=== PATIENT | female | born 1990 | race Hispanic/Latino ===

== ENCOUNTER 2017-09-11 12:54 | Emergency (ER) | payer MEDICAID ==
[2017-09-11 13:19] LABS: #Eosinphils 0.3 thou/uL (0.0-0.7); #Lymphocytes 1.3 thou/uL (1.20-3.40); #Monocytes 0.3 thou/uL (0.11-0.59); #Neutrophils 4.6 thou/uL (1.40-6.50); %Basophils 0.6 % (0.0-1.0); %Eosinophils 4.4 % (0.0-10.0); %Lymphocytes 19.1 % (21.0-51.0); %Monocytes 4.9 % (0.0-10.0); %Neutrophils 70.9 % (42.0-75.0); Hemoglobin 12.7 g/dL (12.0-16.0); Mean Corpuscular HGB CONC 35.8 g/dL (32.0-36.0); Mean Corpuscular Hemoglobin 31.5 pg (27.0-31.0); Mean Corpuscular Volume 87.9 fl (81.0-99.0); Mean Platelet Volume 7.3 fL (7.4-10.4); Platelet Count 264 thou/uL (130-400); RBC Distribution Width 12.4 % (11.5-14.5); Red Blood Cell (RBC) Count 4.04 mill/uL (4.20-5.40); White Blood Cell (WBC) Count 6.5 thou/uL (4.8-10.8)
[2017-09-11 13:53] LABS: ALT (SGPT) 14 U/L (8-55); AST (SGOT) 29 U/L (5-34); Albumin 3.7 g/dL (3.5-5.0); Alkaline Phosphatase 47 U/L (40-150); Anion Gap 11 mmol/L (10-20); BUN (Urea Nitrogen) 7 mg/dL (7.0-18.7); Bilirubin, Total 0.4 mg/dL (0.2-1.2); Calc. Creatinine Clearance 0 mL/min (70-130); Calcium 8.9 mg/dL (7.8-10.44); Carbon Dioxide 23 mmol/L (22-29); Chloride 108 mmol/L (98-107); Estimated GFR-MDRD Greater than 90; Globulin 2.6 g/dL (2.4-3.5); Glucose 154 mg/dL (70-105); Potassium 3.6 mmol/L (3.5-5.1); Protein, Total 6.3 g/dL (6.0-8.3); Sodium 138 mmol/L (136-145)
--- NOTE | 2017-09-11 15:04 | ULT ---
PELVIC ULTRASOUND INCLUDING TRANSABDOMINAL AND TRANSVAGINAL AND VASCULAR DUPLEX WITH COLOR AND SPECTR AL DOPPLER IMAGING: Date: 09/11/17 HISTORY: History of positive outpatient with vaginal bleeding. Serum HCG was 2.98. FINDINGS: The uterus measures 8.7 x 4.0 x 5.8 cm. Endometrium is 0.5 cm. The right ovary measures 2.2 x 3.0 x 1 .6 cm. The left ovary is not seen. Some cystic changes in the cervix, probably complicated nabothian cysts. No significant abnormal cul-de-sac fluid. IMPRESSION: No evidence for an intrauterine gestational sac. Nonvisualized left ovary. Follow-up serum HCGs are recommended. If diagnosis remains in doubt, or if there is elevating HCGs, f ollow-up short-term ultrasound is suggested. POS: [facility]
== END 2017-09-11 16:10 | disposition home or self-care (01) ==
LOC: ERS 12:54
DX: O20.0 Threatened abortion (principal); O99.341 Other mental disorders complicating pregnancy, first trimester; F41.9 Anxiety disorder, unspecified; F32.9 Major depressive disorder, single episode, unspecified; Z3A.01 Less than 8 weeks gestation of pregnancy
CPT/HCPCS: 36415; 76856; 80053; 84702; 85025; 86850; 86900; 86901

== ENCOUNTER 2017-10-07 13:00 | Emergency (ER) | payer MEDICAID, OTHER ==
[2017-10-07 14:07] LABS: Bilirubin Negative (Negative); Blood, Urine Negative (Negative); Clarity CLEAR (Clear); Glucose, Urine (Dipstick) Negative (Negative); Leukocyte Negative (Negative); Nitrite Negative (Negative); Protein, Urine (Dipstick) Negative (Neg-Trace); Specific Gravity, Urine 1.019 (1.002-1.036); Urobilinogen 0.2 mg/dL (0.2-1.0); pH, Urine 7.5 (5.0-9.0)
[2017-10-07 14:13] LABS: Pregnancy Test - Urine (BHCG) Negative (Negative); Pregu Control Background? CLEAR/WHITE (CLR/WHITE); Pregu Control Bar Appear? YES (CONTROL BAR); Specific Gravity 1.019 (1.002-1.036)
[2017-10-07 14:33] LABS: BHCG - Serum POSITIVE (NEGATIVE); Pregs Control Background? CLEAR/WHITE (CLR/WHITE); Pregs Control Bar Appear? YES (CONTROL BAR)
[2017-10-07] MEDS ORDERED: Acetaminophen 500 MG TAB ONE (15:56)
--- NOTE | 2017-10-07 16:11 | ULT ---
FIRST TRIMESTER GESTATIONAL ULTRASOUND 10/07/17 HISTORY: History of recent miscarriage with persistent vaginal bleeding and positive beta HCG. COMPARISON: Prior exam dated 09/11/17. TECHNIQUE: A transabdominal and transvaginal pelvic ultrasound utilizing mehta scale, color doppler and spectral doppler images were performed. FINDINGS: The uterus measures 8.2 x 4.7 x 5.5 cm. There is fluid present within the endometrial canal. No defin ite vascularized tissue is grossly evidence within the endometrial canal. The right ovary measures 3.2 x 2.1 x 2.4 cm. There is flow to the right ovary. The left ovary is not visualized. No definite free fluid is evident. IMPRESSION: 1. Nonvisualization of the previously seen cystic structure at the level of the lower uterine se gment on the comparison examination. There is now fluid present lining the endometrial canal without evidence of a dopplerable soft tissue to suggest retained products of conception. 2. The visualized right ovary is normal appearing. The left ovary is not well seen. POS: [facility]
== END 2017-10-07 16:24 | disposition home or self-care (01) ==
LOC: ERS 13:00
DX: O20.0 Threatened abortion (principal); O99.89 Other specified diseases and conditions complicating pregnancy, childbirth and the puerperium; M54.5 Low back pain; O99.341 Other mental disorders complicating pregnancy, first trimester; F41.9 Anxiety disorder, unspecified; F32.9 Major depressive disorder, single episode, unspecified
CPT/HCPCS: 36415; 76856; 81003; 81025; 84702; 84703; 87086

== ENCOUNTER 2017-10-18 20:29 | Emergency (ER) | payer OTHER ==
[2017-10-18 21:21] LABS: #Basophils 0.1 thou/uL (0.0-0.2); #Eosinphils 0.1 thou/uL (0.0-0.7); #Lymphocytes 2.5 thou/uL (1.20-3.40); #Monocytes 0.5 thou/uL (0.11-0.59); #Neutrophils 3.2 thou/uL (1.40-6.50); %Eosinophils 1.5 % (0.0-10.0); %Monocytes 8.3 % (0.0-10.0); %Neutrophils 50.1 % (42.0-75.0); Hemoglobin 12.5 g/dL (12.0-16.0); Mean Corpuscular HGB CONC 35.1 g/dL (32.0-36.0); Mean Corpuscular Hemoglobin 30.6 pg (27.0-31.0); Mean Corpuscular Volume 87.2 fl (81.0-99.0); Mean Platelet Volume 6.3 fL (7.4-10.4); Platelet Count 311 thou/uL (130-400); RBC Distribution Width 12.4 % (11.5-14.5); Red Blood Cell (RBC) Count 4.09 mill/uL (4.20-5.40); White Blood Cell (WBC) Count 6.3 thou/uL (4.8-10.8)
[2017-10-18 21:22] LABS: BHCG - Serum POSITIVE (NEGATIVE); Pregs Control Background? CLEAR/WHITE (CLR/WHITE); Pregs Control Bar Appear? YES (CONTROL BAR)
--- NOTE | 2017-10-18 23:07 | ULT ---
TRANSABDOMINAL AND TRANSVAGINAL PELVIC ULTRASOUND WITH DOPPLER: 10/18/2017 PROVIDED CLINICAL HISTORY: Vaginal bleeding. COMPARISON: 10/07/2017 FINDINGS: The uterus measures approximately 9.7 x 5.4 x 3.2 cm and demonstrates material of somewhat amorphous shape and mixed echogenicity within the endometrial canal. This material measures approximately 2.8 x 6.2 cm. No flow is documented to this material. There is surrounding fluid echogenicity within th e endometrial canal. The right and left ovaries demonstrate an unremarkable sonographic appearance. There is a small amount of free fluid present in the pelvic cul-de-sac. Color Doppler and spectral analysis of the ovarian wave-forms demonstrates flow bilaterally. IMPRESSION: Heterogeneous material within the uterine endometrial canal, as described above, possibly reflecting blood products or products of conception. No evidence for a viable intrauterine . POS: [facility]
[2017-10-18 23:45] LABS: Bilirubin Small (Negative); Blood, Urine Large (Negative); Clarity CLOUDY (Clear); Glucose, Urine (Dipstick) Negative (Negative); Leukocyte Trace (Negative); Nitrite Negative (Negative); Protein, Urine (Dipstick) 30 mg/dL (Neg-Trace); Specific Gravity, Urine 1.028 (1.002-1.036)
[2017-10-18 23:47] LABS: Bacteria/HPF None Seen HPF (None Seen); Hyaline Casts/LPF 0-3 HYALINE CAST LPF (0-3 Hyaline); Pathc Cast-AUWi Flag 0.72 (0-2.49); RBC/HPF GREATER THAN 50-TNTC HPF (0-3); WBC/HPF 0-3 HPF (0-3)
[2017-10-20 01:36] LABS: Chlamydia by PCR Not Detected (NotDetected); GC by PCR Not Detected (NotDetected)
== END 2017-10-18 23:35 | disposition home or self-care (01) ==
LOC: ERS 20:29
DX: O20.0 Threatened abortion (principal); O99.511 Diseases of the respiratory system complicating pregnancy, first trimester; J45.909 Unspecified asthma, uncomplicated; O99.341 Other mental disorders complicating pregnancy, first trimester; F41.9 Anxiety disorder, unspecified; F32.9 Major depressive disorder, single episode, unspecified; Z3A.01 Less than 8 weeks gestation of pregnancy
CPT/HCPCS: 36415; 76856; 81003; 81015; 84702; 84703; 85025; 86850; 86900; 86901; 87480; 87491; 87510; 87591; 87660

== ENCOUNTER 2017-10-21 13:02 | Emergency (ER) | payer OTHER ==
[2017-10-21] MEDS ORDERED: Acetaminophen 500 MG TAB ONE (13:46)
--- NOTE | 2017-10-21 14:14 | ULT ---
PELVIC ULTRASOUND: COMPARISON: 10/18/17, 10/07/17. HISTORY: Status post miscarriage 1 week. Bleeding has decreased. Vaginal cramping and bleeding. TECHNIQUE: Transabdominal imaging of the pelvis is performed. Ovaries are interrogated with mehta scale, color f low, Doppler imaging, and spectral waveform analysis. Endovaginal imaging was also performed. FINDINGS: Uterus is identified. There are no myometrial masses. Uterus measures 6.9 x 4.9 x 9.5 cm. Thickene d slightly heterogeneous endometrium with a diameter of 2.6 cm. Previously noted mixed echotexture f ocus in the endometrium is presumed to be a component of the findings that are currently in the endom etrium. No evidence of a gestational sac, yolk sac, or pole. No evidence of vascularity in th e endometrium. Minimal free fluid in the cul-de-sac. Left and right ovary have a normal echotexture measuring 3.3 x 2.2 x 1.9 cm and 3.0 x 2.9 x 2.1 cm. Vascular flow to both ovaries. IMPRESSION: Persistently thickened and slightly heterogeneous endometrium without vascular flow. No evidence of an intrauterine gestation. Findings may represent blood products vs retained products of conception. Confirmation with serum beta HGC is recommended. POS: [facility]
--- NOTE | 2017-10-21 14:36 | PDOC.EVN ---
Event Note - Event Note Event Note: YULIANA Informal Phone Consult from ED (@[id number]): Clinical case: OB first trimester vag bleed Case reviewed with ED provider HPI: This patient is a multigravida, without ectopic risk factors, here for OB Vag Bleed. BHCG 3 days ago was 1900 with BHCG today as 4060. Sono today with thickened ES, no GS, no adnexal masses. Normal doppler studies to adnexa. The patient has some small vag bleed but no active clotting or hemorrhage. Per ED provider, no complaints of abdominal pains. Physical report is benign. Vitals are wnl. RH positive Based on my verbal discussion of the case, it is compatible with an ill fated IUP (abnormal ). At this time, I do not suspect an ectopic. Rather than emperic methotrxate, I have recommended a scheduled D&C with her [facility] provider as that will allow for tissue diagnosis of uterine contents, as well as therapy As she is stable without active vag bleed, she is stable and does not met criteria for urgent/emergent D&C at this time. Plan D/W ED staff. All agree with plan of care..
== END 2017-10-21 15:03 | disposition home or self-care (01) ==
LOC: ERS 13:02
DX: O20.0 Threatened abortion (principal); O99.511 Diseases of the respiratory system complicating pregnancy, first trimester; J45.909 Unspecified asthma, uncomplicated; O99.341 Other mental disorders complicating pregnancy, first trimester; F41.9 Anxiety disorder, unspecified; F32.9 Major depressive disorder, single episode, unspecified; Z3A.01 Less than 8 weeks gestation of pregnancy
CPT/HCPCS: 36415; 76856; 84702

== ENCOUNTER 2018-03-08 06:27 | Emergency (ER) | payer OTHER ==
[2018-03-08] MEDS ORDERED: Ketorolac Tromethamine 30 MG/ML VIAL ONE (06:43)
[2018-03-08] MEDS ORDERED: Ondansetron HCl/PF 4 MG/2 ML Vial ONE (06:43)
[2018-03-08 07:07] LABS: Bilirubin Negative (Negative); Blood, Urine Negative (Negative); Clarity CLEAR (Clear); Glucose, Urine (Dipstick) Negative (Negative); Leukocyte Negative (Negative); Nitrite Negative (Negative); Protein, Urine (Dipstick) Negative (Neg-Trace); Specific Gravity, Urine 1.021 (1.002-1.036); Urobilinogen 0.2 mg/dL (0.2-1.0)
[2018-03-08 07:11] LABS: ALT (SGPT) 11 U/L (8-55); AST (SGOT) 17 U/L (5-34); Albumin 4.6 g/dL (3.5-5.0); Alkaline Phosphatase 56 U/L (40-150); Anion Gap 12 mmol/L (10-20); BUN (Urea Nitrogen) 13 mg/dL (7.0-18.7); Bilirubin, Total 0.3 mg/dL (0.2-1.2); Calc. Creatinine Clearance 0 mL/min (70-130); Calcium 9.4 mg/dL (7.8-10.44); Carbon Dioxide 26 mmol/L (22-29); Chloride 106 mmol/L (98-107); Estimated GFR-MDRD 81; Globulin 2.8 g/dL (2.4-3.5); Glucose 103 mg/dL (70-105); Lipase 49 U/L (8-78); Potassium 3.8 mmol/L (3.5-5.1); Protein, Total 7.4 g/dL (6.0-8.3); Sodium 140 mmol/L (136-145)
[2018-03-08 07:21] LABS: Band 1 % (5-11); Eosinophils 6 % (0-10); Hemoglobin 13.7 g/dL (12.0-16.0); Lymphocytes 31 % (21-51); MDiff Complete? YES; Mean Corpuscular HGB CONC 32.8 g/dL (32.0-36.0); Mean Corpuscular Hemoglobin 31.7 pg (27.0-31.0); Mean Corpuscular Volume 96.5 fL (78.0-98.0); Mean Platelet Volume 7.5 fL (7.4-10.4); Monocytes 5 % (0-10); Neutrophil 55 % (42-75); PLT Morphology Comment Appears Adequate; Platelet Count 271 thou/uL (130-400); RBC Distribution Width 11.6 % (11.5-14.5); RBC Morphology Normal; Reactive Lymphocytes 1 % (0-10); Red Blood Cell (RBC) Count 4.34 mill/uL (4.20-5.40); White Blood Cell (WBC) Count 5.9 thou/uL (4.8-10.8)
[2018-03-08 08:42] LABS: Pregnancy Test - Urine (BHCG) Negative (Negative); Pregu Control Background? CLEAR/WHITE (CLR/WHITE); Pregu Control Bar Appear? YES (CONTROL BAR); Specific Gravity 1.021 (1.002-1.036)
== END 2018-03-08 11:16 | disposition home or self-care (01) ==
LOC: ERS 06:27
DX: N76.0 Acute vaginitis (principal); J45.909 Unspecified asthma, uncomplicated; R10.9 Unspecified abdominal pain
CPT/HCPCS: 80053; 81003; 81025; 83690; 85025; 87480; 87491; 87510; 87591; 87660; 96361; 96374; 96375; J1885; J2405

== ENCOUNTER 2018-04-21 22:10 | Emergency (ER) | payer OTHER, SELFPAY ==
[2018-04-21] MEDS ORDERED: Lidocaine 1% (PF) 30 ML VIAL ONE (22:25)
[2018-04-21] MEDS ORDERED: Bacitracin Zinc 1 Packet ONE (22:45)
== END 2018-04-21 22:54 | disposition home or self-care (01) ==
LOC: ERS 22:10
DX: S61.211A Laceration without foreign body of left index finger without damage to nail, initial encounter (principal); J45.909 Unspecified asthma, uncomplicated; F41.9 Anxiety disorder, unspecified; F32.9 Major depressive disorder, single episode, unspecified; Z79.899 Other long term (current) drug therapy; W25.XXXA Contact with sharp glass, initial encounter
CPT/HCPCS: 12001; J2001

== ENCOUNTER 2018-12-10 23:35 | Emergency (ER) | payer SELFPAY ==
[2018-12-11] MEDS ORDERED: Ketorolac Tromethamine 60 MG/2 ML VIAL ONE (00:28)
== END 2018-12-11 00:47 | disposition home or self-care (01) ==
LOC: ERS 23:35
DX: K04.7 Periapical abscess without sinus (principal); K02.9 Dental caries, unspecified; F41.9 Anxiety disorder, unspecified; F17.210 Nicotine dependence, cigarettes, uncomplicated
CPT/HCPCS: 96372; 99283; J1885

== ENCOUNTER 2018-12-16 13:29 | Emergency (ER) | payer SELFPAY ==
[2018-12-16 14:33] LABS: #Basophils 0.1 thou/uL (0.0-0.2); #Eosinphils 0.3 thou/uL (0.0-0.7); #Monocytes 0.3 thou/uL (0.11-0.59); #Neutrophils 3.6 thou/uL (1.40-6.50); %Basophils 1.3 % (0.0-1.0); %Eosinophils 4.2 % (0.0-10.0); %Lymphocytes 31.7 % (21.0-51.0); %Monocytes 4.7 % (0.0-10.0); Hemoglobin 12.6 g/dL (12.0-16.0); Mean Corpuscular HGB CONC 32.6 g/dL (32.0-36.0); Mean Corpuscular Hemoglobin 27.9 pg (27.0-31.0); Mean Corpuscular Volume 85.6 fL (78.0-98.0); Mean Platelet Volume 7.6 fL (7.4-10.4); Platelet Count 262 thou/uL (130-400); RBC Distribution Width 13.6 % (11.5-14.5); Red Blood Cell (RBC) Count 4.51 mill/uL (4.20-5.40); White Blood Cell (WBC) Count 6.2 thou/uL (4.8-10.8)
[2018-12-16 14:52] LABS: ALT (SGPT) 64 U/L (8-55); AST (SGOT) 36 U/L (5-34); Alkaline Phosphatase 53 U/L (40-150); Anion Gap 10 mmol/L (10-20); BUN (Urea Nitrogen) 12 mg/dL (7.0-18.7); Bilirubin, Total 0.5 mg/dL (0.2-1.2); Calc. Creatinine Clearance 0 mL/min (70-130); Calcium 9.1 mg/dL (7.8-10.44); Carbon Dioxide 24 mmol/L (22-29); Chloride 106 mmol/L (98-107); Estimated GFR-MDRD Greater than 90; Globulin 2.6 g/dL (2.4-3.5); Glucose 158 mg/dL (70-105); Lipase 55 U/L (8-78); Potassium 4.1 mmol/L (3.5-5.1); Protein, Total 6.6 g/dL (6.0-8.3); Sodium 136 mmol/L (136-145)
== END 2018-12-16 15:32 | disposition home or self-care (01) ==
LOC: ERS 13:29
DX: R10.84 Generalized abdominal pain (principal); J45.909 Unspecified asthma, uncomplicated; F41.9 Anxiety disorder, unspecified; F17.210 Nicotine dependence, cigarettes, uncomplicated; Z79.899 Other long term (current) drug therapy
CPT/HCPCS: 36415; 80053; 83690; 85025; 99284

== ENCOUNTER 2019-05-05 20:22 | Emergency (ER) | payer SELFPAY ==
[2019-05-05 21:04] LABS: #Basophils 0.1 thou/uL (0.0-0.2); #Eosinphils 0.2 thou/uL (0.0-0.7); #Lymphocytes 2.2 thou/uL (1.20-3.40); #Monocytes 0.4 thou/uL (0.11-0.59); #Neutrophils 6.4 thou/uL (1.40-6.50); %Basophils 0.9 % (0.0-1.0); %Lymphocytes 23.4 % (21.0-51.0); %Monocytes 4.6 % (0.0-10.0); %Neutrophils 69.1 % (42.0-75.0); Hemoglobin 13.9 g/dL (12.0-16.0); Mean Corpuscular HGB CONC 34.8 g/dL (32.0-36.0); Mean Corpuscular Volume 86.1 fL (78.0-98.0); Mean Platelet Volume 7.3 fL (7.4-10.4); Platelet Count 266 thou/uL (130-400); RBC Distribution Width 12.4 % (11.5-14.5); Red Blood Cell (RBC) Count 4.64 mill/uL (4.20-5.40); White Blood Cell (WBC) Count 9.3 thou/uL (4.8-10.8)
[2019-05-05 21:23] LABS: ALT (SGPT) 39 U/L (8-55); AST (SGOT) 23 U/L (5-34); Albumin 3.3 g/dL (3.5-5.0); Alkaline Phosphatase 47 U/L (40-110); Anion Gap 8 mmol/L (10-20); BUN (Urea Nitrogen) 12 mg/dL (7.0-18.7); Bilirubin, Total 0.3 mg/dL (0.2-1.2); Calc. Creatinine Clearance 0 mL/min (70-130); Calcium 8.1 mg/dL (7.8-10.44); Carbon Dioxide 28 mmol/L (22-29); Chloride 107 mmol/L (98-107); Estimated GFR-MDRD Greater than 90; Glucose 217 mg/dL (70-105); Lipase 70 U/L (8-78); Potassium 4.1 mmol/L (3.5-5.1); Protein, Total 5.3 g/dL (6.0-8.3); Sodium 139 mmol/L (136-145)
== END 2019-05-05 23:23 | disposition home or self-care (01) ==
LOC: ERS 20:22
DX: R04.2 Hemoptysis (principal); R10.9 Unspecified abdominal pain; J45.909 Unspecified asthma, uncomplicated; F41.9 Anxiety disorder, unspecified; F17.210 Nicotine dependence, cigarettes, uncomplicated
CPT/HCPCS: 36415; 80053; 83690; 85025; 93005

== ENCOUNTER 2019-05-10 18:07 | Emergency (ER) | payer SELFPAY ==
[2019-05-10] MEDS ORDERED: Ketorolac Tromethamine 30 MG/ML VIAL ONE (18:38)
[2019-05-10] MEDS ORDERED: HYDROcodone/Acetaminophen 5/325 mg Tablet ONE (18:38)
--- NOTE | 2019-05-10 18:38 | RAD ---
XR Ankle Lt 3 View STANDARD INDICATION: Left ankle pain COMPARISON: None. FINDINGS: Bones: Intact. Ankle mortise: Symmetric. Talar Dome: Intact. Subtalar joint: Normal. Visualized hindfoot: Normal. Periarticular soft tissues: Normal. IMPRESSION: 1. No acute fracture or subluxation demonstrated.
== END 2019-05-10 18:58 | disposition home or self-care (01) ==
LOC: ERS 18:07
DX: S93.402A Sprain of unspecified ligament of left ankle, initial encounter (principal); J45.909 Unspecified asthma, uncomplicated; F41.9 Anxiety disorder, unspecified; F17.210 Nicotine dependence, cigarettes, uncomplicated; W10.9XXA Fall (on) (from) unspecified stairs and steps, initial encounter
CPT/HCPCS: 96372; J1885

== ENCOUNTER 2019-07-12 09:47 | Emergency (ER) | payer MEDICAID, SELFPAY ==
[2019-07-12 11:18] LABS: #Basophils 0.1 thou/uL (0.0-0.2); #Eosinphils 0.1 thou/uL (0.0-0.7); #Lymphocytes 1.9 thou/uL (1.20-3.40); #Monocytes 0.3 thou/uL (0.11-0.59); #Neutrophils 3.9 thou/uL (1.40-6.50); %Basophils 0.9 % (0.0-1.0); %Eosinophils 1.4 % (0.0-10.0); %Monocytes 4.8 % (0.0-10.0); Hemoglobin 11.5 g/dL (12.0-16.0); Mean Corpuscular HGB CONC 34.6 g/dL (32.0-36.0); Mean Corpuscular Hemoglobin 29.1 pg (27.0-31.0); Mean Corpuscular Volume 84.1 fL (78.0-98.0); Mean Platelet Volume 7.2 fL (7.4-10.4); Platelet Count 275 thou/uL (130-400); RBC Distribution Width 13.9 % (11.5-14.5); Red Blood Cell (RBC) Count 3.95 mill/uL (4.20-5.40); White Blood Cell (WBC) Count 6.2 thou/uL (4.8-10.8)
[2019-07-12 11:26] LABS: Bilirubin Negative (Negative); Blood, Urine Negative (Negative); Clarity Clear (Clear); Glucose, Urine (Dipstick) Normal (Negative); Leukocyte 250 Leu/uL (Negative); Nitrite Negative (Negative); Protein, Urine (Dipstick) 30 mg/dL (Neg-Trace); Urobilinogen Normal mg/dL (Less than 2)
[2019-07-12 11:27] LABS: Bacteria/HPF 1+ HPF (None Seen)
[2019-07-12 11:43] LABS: ALT (SGPT) 15 U/L (8-55); AST (SGOT) 17 U/L (5-34); Alkaline Phosphatase 39 U/L (40-110); Anion Gap 11 mmol/L (10-20); BUN (Urea Nitrogen) 7 mg/dL (7.0-18.7); Bilirubin, Total 0.4 mg/dL (0.2-1.2); Calc. Creatinine Clearance 0 mL/min (70-130); Calcium 9.1 mg/dL (7.8-10.44); Carbon Dioxide 23 mmol/L (22-29); Chloride 106 mmol/L (98-107); Estimated GFR-MDRD Greater than 90; Globulin 2.8 g/dL (2.4-3.5); Glucose 86 mg/dL (70-105); Protein, Total 6.8 g/dL (6.0-8.3); Sodium 136 mmol/L (136-145)
--- NOTE | 2019-07-12 15:02 | ULT ---
OB ULTRASOUND: Transabdominal ultrasound performed. INDICATION: Dizziness and pelvic pain with . FINDINGS: There is a viable intrauterine . Gestational age by crown-rump length is 11 weeks 2 days. Gestational sac appears normally maintained. Amniotic fluid volume appears normal. Yolk sac is not identified. pole is identified with crown-rump length indicating 11 week 2 day gestation. heart rate recorded at 152 b.p.m. No evidence of subchorionic hemorrhage. A 2 cm cyst on the left ovary. The right ovary is unremarkable. Color Doppler with spectral analysi s demonstrates blood flow to both ovaries. IMPRESSION: 1. A single viable intrauterine gestation. [place]-rump length indicates 11-week 2-day gestation. 2. Small left ovarian cyst. POS: [facility]
== END 2019-07-12 14:55 | disposition home or self-care (01) ==
LOC: ERS 09:47
DX: O23.41 Unspecified infection of urinary tract in pregnancy, first trimester (principal); O99.341 Other mental disorders complicating pregnancy, first trimester; F41.9 Anxiety disorder, unspecified; F32.9 Major depressive disorder, single episode, unspecified; O99.511 Diseases of the respiratory system complicating pregnancy, first trimester; J45.909 Unspecified asthma, uncomplicated; Z3A.10 10 weeks gestation of pregnancy
CPT/HCPCS: 36415; 76856; 80053; 81003; 81015; 84702; 85025; 93005

== ENCOUNTER 2019-08-09 22:48 | Emergency (ER) | payer MEDICAID ==
[2019-08-09] MEDS ORDERED: Acetaminophen 500 MG TAB ONE (23:30)
[2019-08-09 23:41] LABS: Bilirubin Negative (Negative); Blood, Urine Negative (Negative); Glucose, Urine (Dipstick) Negative (Negative); Leukocyte Trace (Negative); Nitrite Negative (Negative); Protein, Urine (Dipstick) Negative (Neg-Trace)
[2019-08-09 23:42] LABS: Clarity Clear (Clear)
[2019-08-09 23:51] LABS: Bacteria/HPF None Seen HPF (None Seen); RBC/HPF 0-3 HPF (0-3); Squamous Epithelial 0-3 HPF (0-3)
== END 2019-08-10 00:11 | disposition home or self-care (01) ==
LOC: ERS 22:48
DX: O9A.212 Injury, poisoning and certain other consequences of external causes complicating pregnancy, second trimester (principal); M54.2 Cervicalgia; M79.604 Pain in right leg; O23.42 Unspecified infection of urinary tract in pregnancy, second trimester; O99.512 Diseases of the respiratory system complicating pregnancy, second trimester; J45.909 Unspecified asthma, uncomplicated; O99.342 Other mental disorders complicating pregnancy, second trimester; F41.9 Anxiety disorder, unspecified; F32.9 Major depressive disorder, single episode, unspecified; Z3A.16 16 weeks gestation of pregnancy; W01.10XA Fall on same level from slipping, tripping and stumbling with subsequent striking against unspecified object, initial encounter
CPT/HCPCS: 81003; 81015; 99283

== ENCOUNTER 2019-09-23 20:51 | Day surgery (SDC) | payer MEDICAID, OTHER ==
[2019-09-23 21:47] VITALS: BP 107/60; TEMP 98.5
[2019-09-23 21:51] VITALS: BMI 33.6
[2019-09-23] MEDS ORDERED: Acetaminophen 325 MG TAB PO PRN (22:16)
[2019-09-23 22:45] LABS: Bilirubin Negative (Negative); Blood, Urine Negative (Negative); Clarity Turbid (Clear); Glucose, Urine (Dipstick) Normal (Negative); Leukocyte 250 Leu/uL (Negative); Nitrite Negative (Negative); Protein, Urine (Dipstick) Negative (Neg-Trace); RBC/HPF 0-3 HPF (0-3); Squamous Epithelial 0-3 HPF (0-3); Urobilinogen Normal mg/dL (Less than 2)
[2019-09-23 22:46] LABS: Bacteria/HPF 1+ HPF (None Seen)
--- NOTE | 2019-09-23 23:17 | PDOC.LDHP ---
Labor and Delivery H&P Chief complaint: abdominal pain HPI: Pt is a 29yo at 21.6 by 9.6w US presenting to ED for back pain and abd pain associated with N/V. She reports back pain and pelvic pain throughout entire with recent anatomy scan showing uterine fibroid which they have been attributing pain to. She does have hx of a fall with secondary back injury 2 months back but reports pain from that episode is resolved. She also has hx of two UTI during this that have been treated but reports no repeat Ucx to confirm resolution. Today she reports acute worsening of this pain after loading a cooler with sodas. Pain located in lower back and wrapped around to the lower pelvis and down b/l legs. She also endorses dysuria, frequency, and having trouble starting her stream. She denies vaginal discharge , hx of STI, change in partners, hematuria, vaginal bleeding, ctx or abd cramping, fever, cough, chills, constipation/diarrhea. She reports good movement. Dating criteria: first trimester ultrasound Grav: 5 Para: 3 OB History Details: 1st - , no complications, born at 37w 2nd - , no complications, born at 40w 3rd - , GDM, IOL at 39w 4th - tubal s/p R salpingectomy Current complications: none, other (hx of 2 UTI in ) Abnormal US findings: Yes (fibroid) Past Medical History: Hx of Depression, not currently on meds Current medications: pre-katie vitamins Previous surgical history: other (R salpingectomy) Allergies/Adverse Reactions: Allergies Allergy/AdvReac Type Severity Reaction Status Date / Time No Known Allergies Allergy Unverified 09/23/19 21:52 Social history: none - Physical Exam Vital signs reviewed and normal: yes General: NAD, other (Neg straight leg raise, strength LE 5/5 b/l, no sensation deficits,) Heart: RRR Lungs: nonlabored breathing Abdomen: other (gravid, ttp of b/l pelvis and suprapubic area, no fundal ttp, neg rebound, no murphys, no guarding, no CVA tenderness. palpation of sacral area is tender.) Extremeties: no edema [place] contractions every: no ctx, FHT rate of 150 - Assessment 1. UTI in 2. Musculoskeletal Pain in 3. Fibroid - Plan -: 29yo at 21.6 by 11.6w US here for abd pain and back pain 2/2 UTI. -UA consistent with UTI. Ucx pending. No ctx on monitor, no concern for labor at this time. Patient feeling well after being given Lidocaine patch and tylenol for pain. She also has accompanying MSK pain from and describes sciatica pain although negative SLR for me today. Will treat her with Macrobid and have her f/u with [facility] within 2 weeks after completion of abx for repeat UCx. Addendum - Attending - Attending Attestation Date/Time: 09/24/19 0830 I personally evaluated the patient and discussed the management with Dr. Shell last night. I agree with the History, Examination, Assessment and Plan documented above with any addition or exceptions noted below.
[2019-09-23] MEDS ORDERED: Lidocaine 5% Patch TD SCH (23:59)
[2019-09-24] MEDS ORDERED: Lidocaine 5% Patch TD SCH (09:00)
[2019-09-24] MEDS ORDERED: Lidocaine Patch Removal 1 EACH TOP SCH ×2 (12:00→21:00)
== END 2019-09-24 00:20 | disposition home or self-care (01) ==
LOC: SDC 20:51 → L&D/OP 20:53
PROVIDERS: ATTEND Family Medicine
DX: O23.42 Unspecified infection of urinary tract in pregnancy, second trimester (principal); O26.892 Other specified pregnancy related conditions, second trimester; R10.2 Pelvic and perineal pain; M54.5 Low back pain; O34.12 Maternal care for benign tumor of corpus uteri, second trimester; D25.9 Leiomyoma of uterus, unspecified; Z3A.21 21 weeks gestation of pregnancy
CPT/HCPCS: 51701; 81003; 81015; 87086; 99283

== ENCOUNTER 2019-10-08 14:16 | Emergency (ER) | payer OTHER ==
[2019-10-09 10:56] LABS: SARS-CoV-2 MS2 Positive; SARS-CoV-2 N Gene Negative; SARS-CoV-2 S Gene Negative; SARS-CoV-2 orf1ab Negative
== END 2019-10-08 14:47 | disposition home or self-care (01) ==
LOC: ERS 14:16
DX: R05 Cough (principal); Z20.828 Contact with and (suspected) exposure to other viral communicable diseases; F41.9 Anxiety disorder, unspecified; F32.9 Major depressive disorder, single episode, unspecified; J45.909 Unspecified asthma, uncomplicated
CPT/HCPCS: 87635; 99283; U0003

== ENCOUNTER 2019-10-11 13:46 | Emergency (ER) | payer OTHER ==
[2019-10-11 14:31] LABS: Bilirubin Negative (Negative); Blood, Urine Negative (Negative); Clarity Clear (Clear); Glucose, Urine (Dipstick) 500 mg/dL (Negative); Leukocyte Negative Leu/uL (Negative); Nitrite Negative (Negative); Protein, Urine (Dipstick) 20 mg/dL (Neg-Trace); Urobilinogen Normal mg/dL (Less than 2)
== END 2019-10-11 15:23 | disposition home or self-care (01) ==
LOC: ERS 13:46
DX: O99.89 Other specified diseases and conditions complicating pregnancy, childbirth and the puerperium (principal); H00.11 Chalazion right upper eyelid; R21 Rash and other nonspecific skin eruption; R10.9 Unspecified abdominal pain; O99.512 Diseases of the respiratory system complicating pregnancy, second trimester; J45.909 Unspecified asthma, uncomplicated; O99.342 Other mental disorders complicating pregnancy, second trimester; F32.9 Major depressive disorder, single episode, unspecified; F41.9 Anxiety disorder, unspecified; Z3A.23 23 weeks gestation of pregnancy
CPT/HCPCS: 81003; 99284

== ENCOUNTER 2019-11-27 14:11 | Emergency (ER) | payer OTHER ==
[2019-11-27 14:44] LABS: #Eosinphils 0.1 thou/uL (0.0-0.7); #Lymphocytes 1.5 thou/uL (1.20-3.40); #Monocytes 0.5 thou/uL (0.11-0.59); #Neutrophils 4.7 thou/uL (1.40-6.50); %Basophils 0.4 % (0.0-1.0); %Lymphocytes 22.2 % (21.0-51.0); %Monocytes 7.1 % (0.0-10.0); %Neutrophils 69.3 % (42.0-75.0); Hemoglobin 9.9 g/dL (12.0-16.0); Mean Corpuscular Hemoglobin 27.7 pg (27.0-31.0); Mean Corpuscular Volume 81.6 fL (78.0-98.0); Mean Platelet Volume 7.5 fL (7.4-10.4); Platelet Count 248 thou/uL (130-400); RBC Distribution Width 13.9 % (11.5-14.5); Red Blood Cell (RBC) Count 3.59 mill/uL (4.20-5.40); White Blood Cell (WBC) Count 6.8 thou/uL (4.8-10.8)
[2019-11-27 15:06] LABS: ALT (SGPT) 10 U/L (8-55); AST (SGOT) 14 U/L (5-34); Albumin 3.5 g/dL (3.5-5.0); Alkaline Phosphatase 76 U/L (40-110); Anion Gap 14 mmol/L (10-20); BUN (Urea Nitrogen) 8 mg/dL (7.0-18.7); Bilirubin, Total 0.3 mg/dL (0.2-1.2); Calc. Creatinine Clearance 0 mL/min (70-130); Calcium 8.9 mg/dL (7.8-10.44); Carbon Dioxide 19 mmol/L (22-29); Chloride 107 mmol/L (98-107); Estimated GFR-MDRD Greater than 90; Globulin 3.1 g/dL (2.4-3.5); Glucose 121 mg/dL (70-105); Potassium 3.4 mmol/L (3.5-5.1); Protein, Total 6.6 g/dL (6.0-8.3); Sodium 137 mmol/L (136-145)
[2019-11-27 15:41] LABS: Bilirubin Small (Negative); Blood, Urine Negative (Negative); Glucose, Urine (Dipstick) Negative (Negative); Leukocyte Trace (Negative); Nitrite Negative (Negative); Protein, Urine (Dipstick) Negative (Neg-Trace)
[2019-11-27 15:43] LABS: Clarity Clear (Clear)
[2019-11-27 15:54] LABS: RBC/HPF 0-3 HPF (0-3)
[2019-11-27 15:56] LABS: Bacteria/HPF None Seen HPF (None Seen); Mucous/LPF 2+ LPF (<2+); Trichomonas/HPF 1+ HPF (None Seen)
[2019-11-27] MEDS ORDERED: Potassium Chloride 20 MEQ TAB ONE (16:08)
[2019-11-27] MEDS ORDERED: Ondansetron PF 4 MG/2 ML Vial ONE (16:08)
== END 2019-11-27 16:33 | disposition home or self-care (01) ==
LOC: ERS 14:11
DX: O98.313 Other infections with a predominantly sexual mode of transmission complicating pregnancy, third trimester (principal); A59.01 Trichomonal vulvovaginitis; O99.89 Other specified diseases and conditions complicating pregnancy, childbirth and the puerperium; R82.71 Bacteriuria; R53.1 Weakness; O99.513 Diseases of the respiratory system complicating pregnancy, third trimester; J45.909 Unspecified asthma, uncomplicated; O99.343 Other mental disorders complicating pregnancy, third trimester; F41.9 Anxiety disorder, unspecified; F32.9 Major depressive disorder, single episode, unspecified; Z3A.31 31 weeks gestation of pregnancy
CPT/HCPCS: 80053; 81003; 81015; 85025; 96361; 96374; J2405

== ENCOUNTER 2020-01-24 19:10 | Inpatient (IN) | payer OTHER ==
[~2020-01-24 19:10] MED LIST: Bupivacaine HCl 0.5%/Epinephrine 1:200,000/PF 30 ml Vial ONE
[2020-01-24] MEDS ORDERED: hydrALAZINE 20 MG/ML VIAL SLOW IVP PRN (22:12)
[2020-01-24] MEDS ORDERED: Lidocaine 1% (PF) 30 ML VIAL SC PRN (22:12)
[2020-01-24] MEDS ORDERED: Ondansetron PF 4 MG/2 ML Vial IVP PRN (22:12)
[2020-01-24] MEDS ORDERED: Acetaminophen 500 MG TAB PO PRN (22:12)
[2020-01-24] MEDS ORDERED: NS / Oxytocin 40 units/1000ml 1,000 ML IV PRN (22:12)
[2020-01-24] MEDS: Lactated Ringer's 1,000 ML IV SCH (22:25)
[2020-01-24] MEDS ORDERED: Misoprostol 100 MCG TAB VAG SCH (22:30)
--- NOTE | 2020-01-24 22:36 | PDOC.FPROB ---
FMR OB H&P: HPI - History of Present Illness Chief Complaint: eIOL History of Present Illness: Pt is a 29yo @ 39.2wks by 11.6wk dionne who presents for eIOL. Hx of asthma. Has anemia of , s/p infusion on 01/11/20. She denies any LOF, vag bleeding, discharge, dysuria, headache, NVD, vision changes, LE swelling. +FM. Patient does desire epidural. FMR OB H&P: Current - Care : 5 Para: 3013 Gestational age: 39.2 Due date: 01/29/20 Dating Criteria: 11.6 wk sono Course/Complications: Anemia of , obesity, GERD, anxiety - OB Labs Blood type: B RH: positive Antibody Screen: negative HIV: negative RPR: negative HepBsAg: negative Rubella: immune Gonorrhea: negative Chlamydia: negative Pap Smear: NILM, HPV neg 06/2019 3 hour GTT: 2 hour GTT 83/113 A1c: 5.6 GBS: negative H&H: 9.3 on 10/30/19 Platelets: 236 FMR OB H&P: History - Past Medical History PMH: asthma, anxiety- was on hydroxyzine, but currently not taking - OB History OB History: x 3, ectopic with salpingectomy, prior GDM with LGA baby, Anemia of s/p iron infusion on 01/11/20 - Surgical History Sx History: ectopic with salpingectomy October 2017 - Social History Social History: no T/A/D - Family History Family History: HTN, DM FMR OB H&P: Medications - Current Home Medications: Medication Instructions Recorded Confirmed Type hydrOXYzine HCl [Hydroxyzine HCl] 50 mg PO PRN PRN 09/23/19 01/25/20 History Sertraline HCl [Zoloft] 50 mg PO DAILY 01/11/20 01/25/20 History Allergies/Adverse Reactions: Allergies Allergy/AdvReac Type Severity Reaction Status Date / Time No Known Allergies Allergy Verified 01/11/20 10:26 FMR OB H&P: ROS - Review of Systems General: denies: fever/chills Eyes: denies: vision changes ENT: denies: nasal congestion, sore throat Cardiovascular: denies: chest pain, edema Respiratory: denies: cough, congestion Gastrointestinal: denies: abdominal pain, nausea, vomiting, diarrhea Genitourinary (Female): reports: incontinence, contractions. denies: dysuria, vaginal discharge, vaginal pain, vaginal bleeding Musculoskeletal: denies: pain, swelling Neurologic: denies: headache Integumentary: denies: itching FMR OB H&P: Vital Signs - Maternal Vital signs: 118/74, HR 67, RR 20, T 98.8 - Heart Tones Baseline: 130 Variability: moderate Acceleration: present Deceleration: absent Category: category 1 [place] contractions every: irregular FMR OB H&P: Physical Exam - Physical Exam General: NAD, awake, alert and oriented HEENT: normocephalic and atraumatic, grossly normal vision, grossly normal hearing Neck: supple, FROM Chest: non-tender to palpation Heart: RRR, normal S1/S2 General: CTAB, no respiratory distress Abdomen: gravid, non-tender Musculoskeletal: normal gait and station, pulses present Neurological: no focal deficit Skin: no rash, no jaundice Psychiatric: intact recent and remote memory, normal mood and affect - Pelvic Exam SVE: 50/-3 Varma score: 4 Membranes: intact Presentation: cephalic FMR OB H&P: Results - Labs Lab results: Laboratory Results - last 24 hr 01/24/20 20:10 Blood Type B POSITIVE Antibody Screen NEGATIVE FMR OB H&P: A/P Discussion: Date/Time: 01/24/202232 #eIOL - @ 39.2wks by 11.6wk sono - COVID neg, GBS neg - desires an epidural - SVE: /-3 @ 5, baby ballotable, membranes intact - Varma score 4, will start cytotec and recheck in 4 hours and evaluate for starting pit - FHT: Cat 1, 130/mod/accel + - contractions irregular - continuous monitor - continue routine care #Anemia of - s/p iron infusion on 01/11/20 - pending CBC #obesity - aware #hx of asthma - has albuterol inhaler but has not used it recenlty - will avoid using hemabate #hx of anxiety - pt states anxiety has resolved since getting the iron infusion Diet: NPO with ice chips IVF: LR 125 Code: Full Dispo: eIOL, VSS, FHT Cat 1, continue routine care This H&P was discussed with Dr.G Jewell and Dr. Adia Borrego who agree with the above documentation and plan. Agree with plan above. This is a 29yo who is presenting for eIOL @ 39.2wks. She is feeling well overall, no acute issues. SVE 2/50/-3 @ 2145, FHT 130s, cat 1 strip. CTX irregular. Plan to continue routine labor progression. Plan for . Will start with cytotech due to VARMA score of 4. Desires epidural. Discussed plan with Dr. Jewell. Addendum - Attending - Attending Attestation Date/Time: 01/25/20 [id number] I discussed the management with Dr. Obando last night and personally evaluated the patient with Dr Sanchez this morning. I agree with the History, Examination, Assessment and Plan documented above with any addition or exceptions noted below. Cervical exam this morning reveals favorable varma score. Pitocin to be initiated. Overnight some periods Cat 2 tracing due to late decels. THis has resolved back to a Cat 1 tracing. Discussed clinical impression and plan with patient and partner who concur.
[2020-01-24 22:46] VITALS: BMI 35.4
[2020-01-24 22:52] LABS: Hemoglobin 10.6 g/dL (12.0-16.0); Mean Corpuscular HGB CONC 33.4 g/dL (32.0-36.0); Mean Corpuscular Hemoglobin 27.8 pg (27.0-31.0); Mean Corpuscular Volume 83.3 fL (78.0-98.0); Mean Platelet Volume 8.6 fL (7.4-10.4); Platelet Count 201 thou/uL (130-400); RBC Distribution Width 19.3 % (11.5-14.5); Red Blood Cell (RBC) Count 3.81 mill/uL (4.20-5.40); White Blood Cell (WBC) Count 7.8 thou/uL (4.8-10.8)
[2020-01-24 23:09] LABS: Syphilis Antibody Nonreactive (Nonreactive); Syphilis Antibody Index 0.05 S/CO (<1.00 Non-Reactive)
[2020-01-25 01:03] LABS: HBSAg Index 0.14 S/CO (0-0.99); Hep B Surf Ag Non-Reactive S/CO (NonReactive)
[2020-01-25] MEDS ORDERED: Fentanyl 4 mcg/Bup 0.1% Cadd 100 ML ONE ×3 (01:14→14:47)
[2020-01-25] MEDS ORDERED: EPHEDRINE 25 MG/5 ML SYRINGE SLOW IVP PRN (01:15)
[2020-01-25] MEDS ORDERED: Ondansetron PF 4 MG/2 ML Vial IVP PRN ×2 (01:15→20:54)
[2020-01-25] MEDS ORDERED: Promethazine HCl 25 MG/ML VIAL IM PRN ×2 (01:15→20:54)
[2020-01-25] MEDS ORDERED: Acetaminophen 325 MG TAB PO PRN (01:15)
[2020-01-25] MEDS ORDERED: diphenhydrAMINE 50 MG/ML VIAL IVP PRN (01:15)
[2020-01-25] MEDS ORDERED: Communication Order-Pharmacy FS SCH (01:15)
[2020-01-25] MEDS ORDERED: Lactated Ringer's 500 ML IV PRN (01:15)
[2020-01-25] MEDS ORDERED: Naloxone HCl 0.4 mg/ml Vial IVP PRN ×2 (01:15)
[2020-01-25] MEDS ORDERED: Fentanyl 4 mcg/Bupivacaine 0.1% Cassette 100 ML EPIDURAL SCH (01:15)
--- NOTE | 2020-01-25 02:27 | PDOC.LDPN ---
Labor & Delivery Progress Note - Subjective Subjective: comfortable - Objective Vital signs reviewed and normal: yes General: NAD SVE: /-3 FHT: category 1, variability present [place] contractions every: 2 min Procedures: epidural placed @ 0200 -: #[place] - @ 39.2wks by 11.6wk sono - COVID neg, GBS neg - epidural placed @ 0200 - SVE: /-3 @ 0200, baby ballotable, membranes intact - valentine score 5, tachysystole, will wait for ctx to space out before giving 2nd cytotec - FHT: Cat 1, 130/mod/accel + - contractions q1-2min - continuous monitor - continue routine care #Anemia of - s/p iron infusion on 01/11/20 - pending CBC #obesity - aware #hx of asthma - has albuterol inhaler but has not used it recenlty - will avoid using hemabate #hx of anxiety - pt states anxiety has resolved since getting the iron infusion Diet: NPO with ice chips IVF: LR 125 Code: Full Dispo: JOJO Vigil, FHT Cat 1, continue routine care
[2020-01-25] MEDS: Lactated Ringer's 1,000 ML IV SCH ×2 (06:44→20:04)
[2020-01-25] MEDS ORDERED: NS w/ Oxytocin 10 units 500 ML ONE (07:21)
[2020-01-25] MEDS ORDERED: NS w/ Oxytocin 10 units 500 ML IV SCH (08:00)
--- NOTE | 2020-01-25 08:39 | PDOC.LDPN ---
Labor & Delivery Progress Note - Subjective Subjective: comfortable - Objective Vital signs reviewed and normal: yes General: NAD, resting Dilation: 2 Effacement: 75% (80) Station: -2 FHT: category 1 (5 min of late decelerations resolved with position change & fluids), category 2 [place] contractions every: 4-6min, intermittent Plan: continue plan of care, labor augmentation -: @ 39.2wks by 11.6wk sono #eIOL - COVID neg, GBS neg, epidural in place - Baby cephalic confirmed with Errol per Dr. Jewell - SVE: /-2 @ @0630 - valentine score 8, Pit started @ 6mIU - FHT: Cat 1, 130/mod/accel + (currently) - contractions q3-4 #Anemia of - s/p iron infusion on 01/11/20 -Hb stable at 10 #obesity - aware #hx of asthma - has albuterol inhaler but has not used it recenlty - will avoid using hemabate #hx of anxiety - pt states anxiety has resolved since getting the iron infusion Diet: NPO with ice chips IVF: LR 125 Code: Full Plan: Continue Pit @6, titrate as tolerated. Recheck in 4 hours.
--- NOTE | 2020-01-25 11:42 | PDOC.LDPN ---
Labor & Delivery Progress Note - Subjective Subjective: comfortable - Objective Vital signs reviewed and normal: yes General: NAD, resting Uterine fundus: non tender Dilation: 6 Effacement: 90% Station: -1 FHT: category 1 [place] contractions every: 2-3 minutes Plan: continue plan of care -: @ 39.2wks by 11.6wk dionne #eIOL - COVID neg, GBS neg, epidural in place - Baby cephalic confirmed with Errol per Dr. Jewell - /-3 @0200 epidural placed - SVE: /-2 @ 0630 pit started - SVE: /-1, SROM @ 0900 - SVE: /1 @1130 - FHT: Cat 1, 140/mod/accel+ currently - contractions q2-3 #Anemia of - s/p iron infusion on 01/11/20 -Hb stable at 10 #obesity - aware #hx of asthma - has albuterol inhaler but has not used it recenlty - will avoid using hemabate #hx of anxiety - pt states anxiety has resolved since getting the iron infusion Diet: NPO with ice chips IVF: LR 125 Code: Full Plan: Titrate pit as tolerated. Recheck in 2 hours.
--- NOTE | 2020-01-25 13:22 | PDOC.LDPN ---
Labor & Delivery Progress Note - Subjective Subjective: comfortable, vaginal pressure - Objective Vital signs reviewed and normal: yes General: NAD, breathing through contractions Uterine fundus: non tender Dilation: 7 Effacement: 90% Station: -1 FHT: variability present (resolved with laying patient on side) [place] contractions every: 2-3 min Plan: continue plan of care -: @ 39.2wks by 11.6wk sono #eIOL - COVID neg, GBS neg, epidural in place - Baby cephalic confirmed with Errol per Dr. Jewell - /-3 @0200 epidural placed - SVE: /2 @ 0630 pit started - SVE: , SROM @ 0900 - SVE: @1130 - SVE: @ 1318 FSE placed - FHT: 1-2 variables present, resolved with laying patient on their side, otherwise moderate variability with accels - contractions q2-3 #Anemia of - s/p iron infusion on 01/11/20 -Hb stable at 10 #obesity - aware #hx of asthma - has albuterol inhaler but has not used it recenlty - will avoid using hemabate #hx of anxiety - pt states anxiety has resolved since getting the iron infusion Diet: NPO with ice chips IVF: LR 125 Code: Full Plan: Titrate pit as tolerated. Recheck in 2 hours.
--- NOTE | 2020-01-25 14:26 | PDOC.BPN ---
- Brief Progress Note Nurse Jordyn paged that patient was having recurrent variables, she placed and IUPC and started amniofusion in addition to positional changes. Notified attending. Came to bedside, attending rechecked patient, still . Strip reviewed, patient having recurrent variables lasting less than a minute down to 60bpm. Repositioned patient, discussed possibility of csection if variables do not resolve in 15-30 minutes with current interventions. Will continue to monitor strip.
--- NOTE | 2020-01-25 14:31 | PDOC.BPN ---
- Brief Progress Note Notified of variable decels by Dr Bray. Came to Federico's room. Nurse had started AMnio-infusion adn stopped pitocin. I performed a cervical exam: /2. Patient has epidural but still feeling pain/pressure with contractions. NO pain between contractions. Vitals normal. Advised patietn that position change and amnio-infusion may resolve the variable decels but if they persists then delivery may be needed. Answered questions and Federico concurs with care plan.
[2020-01-25] MEDS ORDERED: CEFAZOLIN 2 GM in Premix Bag 1 BAG IVPB SCH (15:15)
[2020-01-25] MEDS ORDERED: Bicitra 30 ML UDCUP PO SCH (15:15)
--- NOTE | 2020-01-25 15:18 | PDOC.BPN ---
- Brief Progress Note FHT tracing shows variable decels with about 50% of contractions despite interventions of position change, amnio-infusion, and holding pitocin over past hour. Discussed with patient and partner. Cervical exam is unchanged. R/B/I discussed. Will proceed with delivery for persistent Cat 2 FHT tracing. Nursing and anesthesia notified.
--- NOTE | 2020-01-25 15:22 | PDOC.BPN ---
- Brief Progress Note Patient's strip remained category II, with recurrent variables. Despite interventions, including position changes, amnioinfusion, bolus and pit discontinuation, patient continued to have variables, one lasting 1 minutes down to <60bpms, and SVE remains 7/90/-1. It was decided to take the patient back for section due to persistant category II tracing.
[2020-01-25] MEDS ORDERED: MORPHINE 5 MG/10 ML PF VIAL ONE (15:35)
[2020-01-25] MEDS ORDERED: Oxytocin 10 UNITS/ML VIAL ONE (15:36)
[2020-01-25] MEDS ORDERED: Midazolam HCl 2 mg/2 ml Vial ONE (16:00)
[2020-01-25] MEDS ORDERED: Fentanyl 100 MCG/2 ML VIAL ONE ×2 (16:00→16:41)
[2020-01-25] MEDS ORDERED: Methylergonovine 0.2 MG/ML VIAL ONE ×2 (16:23→16:41)
[2020-01-25 16:30] LABS: Actual Bicarbonate (HCO3a) 22.6 mEq/L (22-28); Base Excess (BEa) -3.7 mEq/L (-2.0 to +3.0)
[2020-01-25 16:31] LABS: Actual Bicarbonate (HCO3v) 22 mEq/L (22-28); Base Excess -3.5 mEq/L (-2.0 to +3.0); pH (Cord, venous) 7.36 (7.32-7.43)
[2020-01-25] MEDS ORDERED: Ondansetron PF 4 MG/2 ML Vial ONE (16:35)
[2020-01-25] MEDS ORDERED: Misoprostol 200 MCG TAB ONE (16:42)
[2020-01-25] MEDS ORDERED: Ketamine 50 MG/ML (10ML VIAL) ONE (16:46)
--- NOTE | 2020-01-25 17:26 | PDOC.OPDEL ---
OB Operative/Delivery Note - Additional Findings/Plan Compilations/Other Findings: Procedure Note Date of Procedure: 01/25/2020 Resident Surgeon: Dr. Imer Almendarez Attending Surgeon: Dr. 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 Procedure in Detail: After risks, benefits, and alternatives were explained to the patient, she gave informed consent. Pre-operative antibiotics included Cefazolin 2 gram IV. The patient was taken to the operating room and spinal anesthesia was initiated. She was placed in the supine position with a left tilt and prepped and draped in usual sterile fashion. A Pfannenstiel incision was made with a scalpel and carried down to the level of the fascia which was sharply nicked. The fascial cut was extended bilaterally with [place] sissors. The inferior and superior edges of the cut fascial edges were elevated with Britton clamps and the underlying rectus muscles were sharply and bluntly dissected free. Midline preperitoneal fat adhesions to the anterio rectus fascia noted and reduced sharp and with electrocaudery. The recti were divided digitally and retracted manually. The peritoneum was entered bluntly and retracted manually. Bladder blade was placed. A low transverse score was made with the scalpel and the uterus was entered in the midline with the scalpel. Clear fluid was seen. The hysterotomy was extended manuallyina cephalocaudal fashion. The infant was noted to be vertex and was delivered by fundal pressure after the right rectus muscle was cut wtih bandage scissors to increase space. Mouth and nares were bulb suctioned. Cord clamped and cut and a live male infant was handed to waiting nurse. Cord segment was collected for blood gas. Placenta was manually extracted, found to be intact with 3 vessel cord and discarded. The uterus was externalized and the endometrium was curetted with a dry lap. Bilateral uterine incision extensions were noted with significant bleeding. Dr. Bunn was called in for assistance of repair. The bladder blade was replaced and the hysterotomy was closed with a running locking #0 Monocryl suture beginning first with the left extension, then the right. The extensions were each noted to be oozing and sutured with #1 Monocryl until hemostatic. The abdomen was irrigated with saline and suctioned free of clots. WHile repairing the hysterotomy, uterine atony noted and so methergine was given. Later cytotec and an additional dose of methergine was given. While clearing the retro-uterine space of blood, a left sided uterine suture was noted to have incidentally passed through the uterus and intro the edge of the pfannestiel skin incision. The suture was liberated from the skin intact. The uterus was internalized. Careful inspection revealed the left extension to have some bleeding which was resolved with a figure of eight stich of O-monocryle. The hysterotomy was then noted to be hemostatic. During the surgery her SBP got down to the 90s and she was noted to have >1500ml of blood loss at that point, so 2 PRBCs were ordered to be transfused. The peritoneum was closed with 3-0 Chromic gut. The muscle was inspected for bleeeding and a few areas were cauderized. When hemostasis confirmed, the fascia was closed with a running non -locking 0-Vicryl suture. The subcutaneous tissue was irrigated and bleeders were cauterized. The skin was approximated with maty and a pressure dressing was placed. All counts were correct. The patient tolerated the procedure well and was taken to the recovery room in stable condition. Estimated Blood Loss: 2000mL. QBL Pending. Complications: Uterine atony, bilateral uterine incision extensions. Specimens: Cord blood sent to lab for blood type, placenta for pathology. Findings: Grossly normal male with apgars pending. Time of delivery 16: 08. Grossly normal placenta with 3 vessel cord to path. Drains: Ramsay to gravity draining clear urine
[2020-01-25] MEDS ORDERED: Meperidine HCl/PF 25 MG/ML VIAL SLOW IVP PRN (17:40)
[2020-01-25] MEDS ORDERED: Ondansetron HCl/PF 4 MG/2 ML Vial IVP PRN (17:40)
[2020-01-25] MEDS ORDERED: L&D-Morphine 4 MG/ML VIAL SLOW IVP PRN (17:40)
[2020-01-25] MEDS ORDERED: HYDROmorphone 2 MG/ML VIAL SLOW IVP PRN (17:40)
[2020-01-25] MEDS ORDERED: Ketorolac Tromethamine 30 MG/ML VIAL IVP SCH (17:45)
[2020-01-25] MEDS ORDERED: Misoprostol 200 MCG TAB PR PRN (20:54)
[2020-01-25] MEDS ORDERED: Lanolin Ointment 7 GM TUBE TOP PRN (20:54)
[2020-01-25] MEDS ORDERED: HYDROcodone/Acetaminophen 5/325 mg Tablet PO PRN (20:54)
[2020-01-25] MEDS ORDERED: Methylergonovine 0.2 MG/ML VIAL IM PRN (20:54)
[2020-01-25] MEDS ORDERED: hydrALAZINE 20 MG/ML VIAL SLOW IVP PRN (20:54)
--- NOTE | 2020-01-25 21:14 | PDOC.BPN ---
- Brief Progress Note Federico is doing well post op. She feels good. Her lochia has been normal. Her vitals are normal. She will be transitioning to post care soon.
[2020-01-25] MEDS ORDERED: Ferrous Sulfate 325 MG TAB PO SCH (21:15)
[2020-01-25] MEDS: Docusate Calcium (SURFAK) 240 MG CAP PO SCH (22:56)
[2020-01-25] MEDS: Ibuprofen 800 MG TAB PO SCH (22:56)
[2020-01-26] MEDS: diphenhydrAMINE 25 MG CAP PO PRN ×2 (00:51→05:33)
[2020-01-26] MEDS: Ibuprofen 800 MG TAB PO SCH ×3 (05:33→21:46)
--- NOTE | 2020-01-26 05:38 | CON ---
DATE OF CONSULTATION: 01/25/2020 HISTORY: The patient is a 29-year-old G5, P3 female, who was taken to the operating room by her primary team, Dr. Jewell, for a primary due to non- reassuring heart tones. I was called intraoperatively after delivery of the baby for deep bilateral extensions to the hysterotomy and excessive bleeding. Upon presentation, I scrubbed and gowned and came to the sterile field. The hysterotomy boundaries were identified with multiple ring forceps. There were deep extensions to both sides with the left side hysterotomy already starting closure. On inspecting the surgical sites noted was the bladder close to the extensions, the flap was created and the bladder was taken down away from the underlying lower uterine segment to give me plenty of room for suturing. With that said, 0 PDS was used in a running locked fashion for closure of the hysterotomy beginning at the extension below where the hysterotomy closure had started and this closure was continued to approximately midline of the hysterotomy. Dr. Jewell continued from the right lateral extension and came to the middle of the hysterotomy and upon inspection of the hysterotomy, there was still quite a bit of bleeding at that right extension apex. I placed a [id number] with care not to incorporate anything posteriorly or to get into the great lateral veins. There was some kind of bleeding that the uterine vessel had been lacerated. With a deep [id number]-xy-[id number] in the lateral uterine side, the bleeding became hemostatic. Good hemostasis noted. At this time, it was noted that on the left side during some part of the closure that the suture passed through to the posterior side of the uterus and had incorporated the skin edge of the Pfannenstiel incision. This skin edge was excised out as there was a very small piece facilitating return of the uterus to the abdomen. With the uterus back in anatomical position, the hysterotomy was then irrigated and found to have some bleeding in the midline. A [id number]-[id number]-pwagb was placed at that point creating good hemostasis. Further inspection of the lateral extensions and the hysterotomy demonstrated good hemostasis and I completed my service to Dr. Jewell. A total of about 20 to 30 minutes were spent assisting during this intraoperative consultation. Job ID: [id number] [facility]Char
[2020-01-26 06:06] LABS: Hemoglobin 9.7 g/dL (12.0-16.0); Mean Corpuscular HGB CONC 33.5 g/dL (32.0-36.0); Mean Corpuscular Hemoglobin 28.5 pg (27.0-31.0); Mean Platelet Volume 8.3 fL (7.4-10.4); Platelet Count 138 thou/uL (130-400); White Blood Cell (WBC) Count 13.8 thou/uL (4.8-10.8)
[2020-01-26] MEDS: Ferrous Sulfate 325 MG TAB PO SCH ×2 (08:32→19:42)
[2020-01-26] MEDS: Prenatal Vitamin 1 TAB PO SCH (08:32)
[2020-01-26] MEDS: HYDROcodone/Acetaminophen 5/325 mg Tablet PO PRN ×3 (08:33→19:42)
[2020-01-26] MEDS: Simethicone Chewable 80 MG TAB PO PRN (08:33)
[2020-01-26] MEDS: Docusate Calcium (SURFAK) 240 MG CAP PO SCH ×2 (08:33→19:41)
[2020-01-26] MEDS ORDERED: Adacel (T-DAP) 0.5 ML SYRINGE IM ONE (09:00)
--- NOTE | 2020-01-26 09:08 | PDOC.PP ---
Post Progress Note Post Day #: 1 Subjective: Doing well but with incisional pain. going well. Passing some gas. Flatus: yes Ambulation: yes Vital Signs (12 hours) Temp Pulse Pulse Resp BP BP 01/26/20 03:53 98.8 F 66 18 98/55 L 01/26/20 00:00 98.4 F 63 16 115/64 01/25/20 22:00 98.8 F 72 16 117/71 Weight Weight 87.997 kg - Physical Examination Cardiovascular: RRR (systolic murmur) Respiratory: non-labored breathing Abdominal: lochia, no distention, appropriately TTP Deviation from normal: incision bandaged Neurological: no gross focal deficits Psychiatric: A&Ox3, normal affect Result Diagrams: 01/26/20 05:54 Additional Labs: Post Labs Blood Type B POSITIVE 01/24/20 20:10 Hep Bs Antigen Non-Reactive S/CO (NonReactive) 01/24/20 20:10 - Assessment/Plan s/p pLTCS for NRFHT #s/p pLTCS with bilateral uterine extensions, POD 1 -Pain controlled with current regimen -Continue postop care -Continue monitoring for signs of bleeding #PPH -required 2 PRBCs -Appropriate lochia/blood loss thus far -Hb 9.7, continue iron #Obesity - aware #Hx of asthma -Stable #Hx of intermittent PNC -MD aware #Hx of anxiety - pt states anxiety has resolved since getting the iron infusion Addendum - Attending - Attending Attestation Date/Time: 01/26/20 0774 I personally evaluated the patient and discussed the management with Dr. Sanchez this afternoon. I agree with the History, Examination, Assessment and Plan documented above with any addition or exceptions noted below.
[2020-01-27] MEDS: HYDROcodone/Acetaminophen 5/325 mg Tablet PO PRN ×4 (03:55→17:27)
[2020-01-27] MEDS: Ibuprofen 800 MG TAB PO SCH ×2 (06:07→13:34)
[2020-01-27] MEDS: Docusate Calcium (SURFAK) 240 MG CAP PO SCH ×2 (08:13→21:53)
[2020-01-27] MEDS: Simethicone Chewable 80 MG TAB PO PRN ×2 (08:13→21:53)
[2020-01-27] MEDS: Prenatal Vitamin 1 TAB PO SCH (08:13)
[2020-01-27] MEDS: Ferrous Sulfate 325 MG TAB PO SCH ×2 (08:15→17:27)
--- NOTE | 2020-01-27 08:15 | PDOC.PP ---
Post Progress Note Post Day #: 2 Subjective: Pt is resting comfortably in bed this morning. Tolerating PO and ambulating without difficulty. Minimal vaginal spotting. Says pain is her only complaint. [place] and Ibuprofen help but about an hour before her next dose is scheduled, she is in terrible pain. Denies XIE, vision, dizziness, N/V, changes, SOB, CP, edema. PO intake tolerated: yes Flatus: yes Ambulation: yes Vital Signs (12 hours) Temp Pulse Resp BP 01/27/20 04:00 97.8 F 75 18 110/56 L 01/27/20 00:00 98.0 F 68 18 109/55 L Weight Weight 87.997 kg - Physical Examination General: NAD Cardiovascular: no m/r/g, RRR Respiratory: clear to auscultation bilaterally, non-labored breathing Abdominal: + bowel sounds, no distention, appropriately TTP Skin: CS incision dry & intact, no rash Neurological: no gross focal deficits Psychiatric: A&Ox3, normal affect Result Diagrams: 01/26/20 05:54 Additional Labs: Post Labs Blood Type B POSITIVE 01/24/20 20:10 Hep Bs Antigen Non-Reactive S/CO (NonReactive) 01/24/20 20:10 - Assessment/Plan s/p pLTCS for NRFHT #s/p pLTCS with bilateral uterine extensions, POD 2 -Pain mostly controlled with current regimen, continue to monitor -Continue postop care -Continue monitoring for signs of bleeding #PPH -required 2 PRBCs -no symptoms today -Appropriate lochia/blood loss thus far -Hb 9.7, continue iron #Obesity - aware #Hx of asthma -Stable #Hx of intermittent PNC -MD aware #Hx of anxiety - pt states anxiety has resolved since getting the iron infusion Plans to follow up with [facility]. Unsure of desired PP contraception. Addendum - Attending - Attending Attestation Date/Time: 01/27/20 1040 I personally evaluated the patient and discussed the management with Dr. Amaral. I agree with the History, Examination, Assessment and Plan documented above with any addition or exceptions noted below. Pain not controlled today. Will monitor and augment. Encourage ambulation. D/C tomorrow.
[2020-01-27 15:28] LABS: HIV (1/2) Antibody/Antigen Non-Reactive (NonReactive); HIV 1/2 INDEX 0.11 S/CO (<1.00)
--- NOTE | 2020-01-27 16:18 | PDOC.BPN ---
- Brief Progress Note Spoke with about risks vs benefit of breast feeding while patient is taking 2 tabs of 5 [place] q4H. Spoke with patient about pain control and how she is feeling. She feels like her pain is well controlled with her current regimen but that about an hour before she is supposed to get her next dose, she is in terrible pain. She would like to keep breast feeding though and would like to try to decrease the amount of [place] she is taking so it does not affect the baby and her ability to breast feed. We are going to hold the next dose of Ibuprofen and instead give a 1x IM dose of 30mg Toradol tonight. We are also going to schedule Atarax at bedtime to help with anxiety/pain/sleep to see if we can decrease the amount of [place] intake in a 24 hour period. Encouraged patient to only take the [place] if she is needing it for her pain so we can work to decrease her need for it to control her pain, or at least work to space out doses. Plan discussed with patient and she voiced understanding.
[2020-01-27] MEDS ORDERED: Ketorolac Tromethamine 30 MG/ML VIAL IM SCH (21:30)
[2020-01-27] MEDS ORDERED: hydrOXYzine 25 MG TAB PO SCH (21:30)
[2020-01-27] MEDS ORDERED: Ketorolac Tromethamine 30 MG/ML VIAL IVP SCH (21:30)
[2020-01-28] MEDS: HYDROcodone/Acetaminophen 5/325 mg Tablet PO PRN ×3 (00:50→10:56)
[2020-01-28] MEDS: Simethicone Chewable 80 MG TAB PO PRN (05:06)
--- NOTE | 2020-01-28 06:41 | PDOC.PP ---
Post Progress Note Post Day #: 3 Subjective: Patient resting comfortably in bed this morning. States pain is "manageable". There are still times where the pain is bad but says she is ready to go home. Tolerating PO and ambulation without difficulty. Minimal to no vaginal bleeding. No BM but is passing gas. PO intake tolerated: yes Flatus: yes Ambulation: yes Vital Signs (12 hours) Temp Pulse Resp BP Pulse Ox 01/27/20 20:07 98.1 F 80 18 116/55 L 98 Weight Weight 87.997 kg - Physical Examination General: NAD Cardiovascular: no m/r/g, RRR Respiratory: clear to auscultation bilaterally, non-labored breathing Abdominal: + bowel sounds, appropriately TTP Skin: CS incision dry & intact, no rash Neurological: no gross focal deficits Psychiatric: A&Ox3, normal affect Result Diagrams: 01/26/20 05:54 Additional Labs: Post Labs Blood Type B POSITIVE 01/24/20 20:10 Hep Bs Antigen Non-Reactive S/CO (NonReactive) 01/24/20 20:10 - Assessment/Plan s/p pLTCS for NRFHT s/p pLTCS with bilateral uterine extensions, POD 3 -Pain is "manageable" with current regimen. Plan to send home with Alpine 5mg 2 tab q4H PRN, Ibuprofen 800mg q8H and Atarax qHS. -Continue postop care- remove maty today -Continue monitoring for signs of bleeding PPH -required 2 PRBCs -no symptoms today -Appropriate lochia/blood loss thus far -Hb 9.7, continue iron Obesity - aware Hx of asthma -Stable Hx of intermittent PNC -MD aware Hx of anxiety - pt states anxiety has resolved since getting the iron infusion - Atarax helps with anxiety and sleep at night Plans to follow up with [facility]. Desires Depo Provera for PP contraception. Addendum - Attending - Attending Attestation Date/Time: 01/28/20 0945 I personally evaluated the patient and discussed the management with Dr. Amaral. I agree with the History, Examination, Assessment and Plan documented above with any addition or exceptions noted below. stable removal today. d/c home today. Rx for norco sent through [facility].
[2020-01-28 07:56] VITALS: BP 106/55; TEMP 98.3
[2020-01-28] MEDS: Ferrous Sulfate 325 MG TAB PO SCH (08:06)
[2020-01-28] MEDS: Prenatal Vitamin 1 TAB PO SCH (08:06)
[2020-01-28] MEDS: Docusate Calcium (SURFAK) 240 MG CAP PO SCH (08:06)
== END 2020-01-28 11:35 | disposition home or self-care (01) | DRG 787 ==
LOC: L&D 19:10 → 3SW 01-25 20:38
PROVIDERS: ADMIT Family Medicine; ATTEND Family Medicine
PROC: 10D00Z1 Extraction of Products of Conception, Low, Open Approach (ICD-10-PCS; principal; 2020-01-25)
PROC: 3E0E7GC Introduction of Other Therapeutic Substance into Products of Conception, Via Natural or Artificial Opening (ICD-10-PCS; 2020-01-25)
PROC: 10H07YZ Insertion of Other Device into Products of Conception, Via Natural or Artificial Opening (ICD-10-PCS; 2020-01-25)
PROC: 10907ZC Drainage of Amniotic Fluid, Therapeutic from Products of Conception, Via Natural or Artificial Opening (ICD-10-PCS; 2020-01-25)
PROC: 3E0P7VZ Introduction of Hormone into Female Reproductive, Via Natural or Artificial Opening (ICD-10-PCS; 2020-01-25)
PROC: 3E033VJ Introduction of Other Hormone into Peripheral Vein, Percutaneous Approach (ICD-10-PCS; 2020-01-25)
PROC: 30233N1 Transfusion of Nonautologous Red Blood Cells into Peripheral Vein, Percutaneous Approach (ICD-10-PCS; 2020-01-25)
DX: O99.02 Anemia complicating childbirth (principal); O72.1 Other immediate postpartum hemorrhage; Z20.828 Contact with and (suspected) exposure to other viral communicable diseases; O99.52 Diseases of the respiratory system complicating childbirth; O99.214 Obesity complicating childbirth; E66.9 Obesity, unspecified; O99.62 Diseases of the digestive system complicating childbirth; O99.344 Other mental disorders complicating childbirth; F41.9 Anxiety disorder, unspecified; O76 Abnormality in fetal heart rate and rhythm complicating labor and delivery; O61.0 Failed medical induction of labor; D50.9 Iron deficiency anemia, unspecified; J45.909 Unspecified asthma, uncomplicated; K21.9 Gastro-esophageal reflux disease without esophagitis; Z3A.39 39 weeks gestation of pregnancy; Z37.0 Single live birth; Z79.899 Other long term (current) drug therapy; Z79.51 Long term (current) use of inhaled steroids
CPT/HCPCS: 36415; 36430; 51702; 82805; 85027; 86762; 86780; 86850; 86900; 86901; 87340; 87389; 88307; J0670; J0690; J1885; J2210; J2250; J2274; J2405; J2590; J3010; P9016; Q0163

== ENCOUNTER 2020-05-11 20:25 | Emergency (ER) | payer OTHER ==
[2020-05-11 21:11] LABS: #Basophils 0.1 thou/uL (0.0-0.2); #Eosinphils 0.3 thou/uL (0.0-0.7); #Lymphocytes 2.6 thou/uL (1.20-3.40); #Monocytes 0.5 thou/uL (0.11-0.59); #Neutrophils 4.8 thou/uL (1.40-6.50); %Basophils 1.1 % (0.0-1.0); %Eosinophils 3.8 % (0.0-10.0); %Lymphocytes 31.2 % (21.0-51.0); Hemoglobin 13.7 g/dL (12.0-16.0); Mean Corpuscular HGB CONC 34.2 g/dL (32.0-36.0); Mean Corpuscular Hemoglobin 29.3 pg (27.0-31.0); Mean Corpuscular Volume 85.7 fL (78.0-98.0); Mean Platelet Volume 7.4 fL (7.4-10.4); Platelet Count 272 thou/uL (130-400); RBC Distribution Width 12.7 % (11.5-14.5); Red Blood Cell (RBC) Count 4.69 mill/uL (4.20-5.40); White Blood Cell (WBC) Count 8.3 thou/uL (4.8-10.8)
[2020-05-11 21:16] LABS: BHCG - Serum Negative (NEGATIVE); Pregs Control Background? CLEAR/WHITE (CLR/WHITE); Pregs Control Bar Appear? YES (CONTROL BAR)
[2020-05-11 21:31] LABS: ALT (SGPT) 43 U/L (8-55); AST (SGOT) 22 U/L (5-34); Albumin 4.3 g/dL (3.5-5.0); Alkaline Phosphatase 60 U/L (40-110); Anion Gap 14 mmol/L (10-20); BUN (Urea Nitrogen) 12 mg/dL (7.0-18.7); Bilirubin, Total 0.4 mg/dL (0.2-1.2); Calc. Creatinine Clearance 0 mL/min (70-130); Calcium 9.3 mg/dL (7.8-10.44); Carbon Dioxide 26 mmol/L (22-29); Chloride 105 mmol/L (98-107); Globulin 2.9 g/dL (2.4-3.5); Glucose 134 mg/dL (70-105); Lipase 68 U/L (8-78); Potassium 3.6 mmol/L (3.5-5.1); Protein, Total 7.2 g/dL (6.0-8.3); Sodium 141 mmol/L (136-145)
[2020-05-11 21:46] LABS: Bacteria/HPF None Seen HPF (None Seen); Bilirubin Negative (Negative); Blood, Urine Trace (Negative); Clarity Clear (Clear); Glucose, Urine (Dipstick) Normal (Negative); Ketone, Urine Trace mg/dL (Negative); Leukocyte 25 Leu/uL (Negative); Mucous/LPF 2+ LPF (<2+); Nitrite Negative (Negative); Protein, Urine (Dipstick) Negative (Neg-Trace); RBC/HPF 0-3 HPF (0-3); Specific Gravity, Urine 1.028 (1.002-1.036); Squamous Epithelial 0-3 HPF (0-3); Urobilinogen Normal mg/dL (Less than 2); pH, Urine 5.5 (5.0-9.0)
[2020-05-11] MEDS ORDERED: Mag-Al 1200 mg/1200 mg/30 ML UDCUP ONE (22:52)
[2020-05-11] MEDS ORDERED: Lidocaine Viscous Sol 2% 15 ml UD Cup ONE (22:52)
== END 2020-05-11 23:27 | disposition home or self-care (01) ==
LOC: ERS 20:25
DX: K21.00 Gastro-esophageal reflux disease with esophagitis, without bleeding (principal); K92.0 Hematemesis
CPT/HCPCS: 36415; 80053; 81003; 81015; 83690; 84703; 85025; 93005

== ENCOUNTER 2021-02-06 02:52 | Emergency (ER) | payer OTHER | END 2021-02-06 03:15 | disposition home or self-care (01) | LOC: ERS 02:52 | DX: J02.9 Acute pharyngitis, unspecified (principal); Z87.891 Personal history of nicotine dependence | CPT/HCPCS: 99282 ==